=== PATIENT | male | born 1975 | race African-American/Black ===

== ENCOUNTER → 2016-04-01 | Day surgery (SDC) | payer OTHER ==
[~2016-04-01] MED LIST: ACETAMINOPHEN/HYDROcodone 325 MG/5 MG TAB ONE; BUPIVACAINE HCL PF 0.5% 10 ML VIAL ONE; KETOROLAC TROMETHAMINE 30 MG/ML (IVP) VIAL IV PUSH ONE; LACTATED RINGER'S 1000 ML INJ 1,000 ML ONE; MIDAZOLAM HCL 2 MG/2 ML VIAL ONE; ONDANSETRON HCL 4 MG/2 ML VIAL IV PUSH ONE; OXYC1TAB36 PO; PROPOFOL 100 MG/10 ML INJ IV ONE; ceFAZolin INJ 1,000 MG VIAL ONE
--- NOTE | 2016-04-01 11:36 | PD.OP ---
cc: Baljinder Chaidez Jr., MD Operative Report Date of Surgery: Apr 01, 2016 Preoperative Diagnosis: left dequervains tenosynovitis Postoperative Diagnosis: same Procedure: left wrist 1st dorsal compartment release Anesthesia: LMA Surgeon: Baljinder Chaidez Incinerator Operator(s): staff Resident Surgeon: none Operation and Findings: Patient was seen and evaluated preoperatively and found to have debilitating LEFT wrist dequervains tenosynovitis. More than 6 months of Increasing activity related pain that has become debilitating in the wrist and now is interfering with the ability to perform activities of daily living. During that time, the patient has failed conservative treatment such as activity modification, use of wrist brace, po NSAIDS, physical therapy, multiple steroid injections. I discussed the treatment plan with the patient who expressed verbal understanding and agrees with my recommendations. Informed consent was obtained after detailed discussion of risk and benefits including bleeding, infection, injury to arteries, nerves, and blood vessels, weakness and numbness of hand, and tendon rupture. Informed consent was obtained. Patient received IV antibiotics prior to incision. Timeout procedure was performed. LEFT upper extremity was prepped with alcohol followed by Hibiclens and draped usual sterile fashion. Patient position supine with an arm table. The radial styloid was palpated and marked. A small incision was made overlying the 1st DC. Dissection was taken down the level of the retinaculum and the 1st DC, containing APL/EPB was opened and released. There was significant synovitis of the tendons. The tendons were elevated and freed from the floor the compartment. There were no further adhesions, subsheaths, additional compartment, septum or osteophytes present. The wound was irrigated, closed 3-0 nylon at the skin. Sterile dressing was applied and the patient was placed in a well-padded radial gutter splint. There were no complications. Patient extubated and transferred to PACU in stable condition. POSTP-OP PLAN OF ACTIVITY Antibiotics: none postop Antiocoagulation: none Weight bearing status: NWB soft dressing, which will be removed in the office within 2 weeks. Dressing: Do not remove dressing Dispo: expected discharge same day Baljinder Chaidez Jr., MD Apr 01, 2016 11:36
== END | disposition home or self-care (01) ==
LOC: ESDC 09:11
PROVIDERS: ATTEND Orthopaedic Surgery
DX: M65.4 Radial styloid tenosynovitis [de Quervain] (principal)
CPT/HCPCS: 01810; 25000; J0690; J1885; J2250; J2405; J3010; J7120

== ENCOUNTER 2016-08-30 19:17 | Emergency (ER) | payer SELFPAY ==
[~2016-08-30] VITALS: Ht 167.6 cm; Wt 78.0 kg
[~2016-08-30 19:17] MED LIST changes: -ACETAMINOPHEN/HYDROcodone 325 MG/5 MG TAB ONE; -BUPIVACAINE HCL PF 0.5% 10 ML VIAL ONE; -KETOROLAC TROMETHAMINE 30 MG/ML (IVP) VIAL IV PUSH ONE; -LACTATED RINGER'S 1000 ML INJ 1,000 ML ONE; -MIDAZOLAM HCL 2 MG/2 ML VIAL ONE; -ONDANSETRON HCL 4 MG/2 ML VIAL IV PUSH ONE; -PROPOFOL 100 MG/10 ML INJ IV ONE; -ceFAZolin INJ 1,000 MG VIAL ONE
[2016-08-30 19:21] VITALS: BP 143/95; PULSE 67; RESP 16; TEMP 97.5; O2SAT 99
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
[2016-08-30 20:23] LABS: BASOPHIL % 0.5 % (0.0-2.0); EOSINOPHIL # 0.1 TH/MM3 (0-0.4); EOSINOPHIL % 0.8 % (0.0-4.0); HEMATOCRIT 41.4 % (39.0-51.0); HEMO FLAGS DIFF FINAL; LYMPH % 30.7 % (9.0-44.0); LYMPHOCYTE # 2.6 TH/MM3 (1.0-4.8); MEAN CELL VOLUME 85.6 FL (80.0-100.0); MEAN CORPUSCULAR HEMOGLOBIN 28.1 PG (27.0-34.0); MEAN CORPUSCULAR HGB CONC 32.8 % (32.0-36.0); MONO % 8.5 % (0.0-8.0); NEUT % 59.5 % (16.0-70.0); PLATELET COUNT 163 TH/MM3 (150-450); RED BLOOD COUNT 4.84 MIL/MM3 (4.50-5.90); RED CELL DISTRIBUTION WIDTH 13.2 % (11.6-17.2); WHITE BLOOD COUNT 8.5 TH/MM3 (4.0-11.0)
[2016-08-30 20:39] LABS: ANION GAP 9 MEQ/L (5-15); BICARBONATE 27.7 MEQ/L (21.0-32.0); BLOOD UREA NITROGEN 14 MG/DL (7-18); CHLORIDE 105 MEQ/L (98-107); GLOMERULAR FILTRATION RATE 78 ML/MIN (>89); POTASSIUM 3.6 MEQ/L (3.5-5.1); SODIUM (NA) 142 MEQ/L (136-145)
[2016-08-30 21:10] LABS: AMPHETAMINE, URINE NEG (NEG); BARBITURATES, URINE NEG (NEG); COCAINE, URINE NEG (NEG)
== END 2016-08-30 22:02 | disposition home or self-care (01) ==
LOC: NEPE 19:17
DX: F12.10 Cannabis abuse, uncomplicated (principal)
CPT/HCPCS: 80048; 80307; 85025; 99283

== ENCOUNTER 2017-06-14 08:56 | Emergency (ER) | payer SELFPAY ==
[~2017-06-14] VITALS: Ht 172.7 cm; Wt 86.0 kg
[2017-06-14 09:03] VITALS: BP 110/78; PULSE 68; RESP 17; TEMP 98.1; O2SAT 99
--- NOTE | 2017-06-14 09:21 | PD ---
HPI Chief Complaint: Abdominal Pain Time Seen by Provider: 09:09 Travel History International Travel<30 days: No Contact w/Intl Traveler<30days: No Traveled to known affect area: No History of Present Illness HPI 42yo M with no significant PMH presents to the ED with c/o painful lump in his abdominal since yesterday morning. Pain is right above umbilicus. Denies any fever, chest pain, sob, n/v, dysuria, hematuria, testicular pain, penile discharge or rash. Pt was doing some heavy lifting the day before. PFSH Past Medical History Medical History: Denies Significant Hx Cancer: No Cardiovascular Problems: No Diabetes: No Diminished Hearing: No Endocrine: No Genitourinary: No Hepatitis: No Hiatal Hernia: No Immune Disorder: No Musculoskeletal: Yes Neurologic: No Psychiatric: No Reproductive: No Respiratory: Yes (PNEUMONIA TIMES 2 HX OF COLLAPSED LUNG) Immunizations Current: Yes (TETANUS SHOT 3 YEARS AGO) Thyroid Disease: No Past Surgical History Abdominal Surgery: No AICD: No Body Medical Devices: HARDWARE IN LEFT ANKLE Cardiac Surgery: No Ear Surgery: No Endocrine Surgery: No Eye Surgery: No Genitourinary Surgery: No Gynecologic Surgery: No Joint Replacement: No Neurologic Surgery: No Oral Surgery: No Pacemaker: No Thoracic Surgery: Yes (CHEST TUBE) Other Surgery: Yes (LEFT WRIST) Social History Alcohol Use: Yes (DAILY) Tobacco Use: No Substance Use: No Allergies-Medications (Allergen,Severity, Reaction): Coded Allergies: No Known Allergies (Unverified Allergy, Unknown, 06/14/17) Reported Meds & Prescriptions Reported Meds & Active Scripts Active No Active Prescriptions or Reported Medications Review of Systems Except as stated in HPI: all other systems reviewed are Neg Physical Exam Narrative GENERAL: 42yoM in mild distress. SKIN: Focused skin assessment warm/dry. HEAD: Atraumatic. Normocephalic. CARDIOVASCULAR: Regular rate and rhythm. No murmur appreciated. RESPIRATORY: No accessory muscle use. Clear to auscultation. Breath sounds equal bilaterally. GASTROINTESTINAL: Abdomen soft, +1cm nodule above mid umbilicus that is tender to palpation. No rebound tenderness or guarding. MUSCULOSKELETAL: No obvious deformities. No clubbing. No cyanosis. No edema. NEUROLOGICAL: Awake and alert. No obvious cranial nerve deficits. Motor grossly within normal limits. Normal speech. PSYCHIATRIC: Appropriate mood and affect; insight and judgment normal. Data Data Last Documented VS Vital Signs Date Time Temp Pulse Resp B/P (MAP) Pulse Ox O2 Delivery O2 Flow Rate FiO2 06/14/17 09:03 98.1 68 17 110/78 (89) 99 Orders Orders Complete Blood Count With Diff (06/14/17 09:17) Comprehensive Metabolic Panel (06/14/17 09:17) Lipase (06/14/17 09:17) Ct Abd/Pel W Iv Contrast(Rout) (06/14/17 09:17) Ketorolac Inj (Toradol Inj) (06/14/17 09:30) Urinalysis - C+S If Indicated (06/14/17 09:22) Iohexol 350 Inj (Omnipaque 350 Inj) (06/14/17 09:47) Labs Laboratory Tests Test 06/14/17 09:20 06/14/17 09:48 White Blood Count 6.8 TH/MM3 Red Blood Count 5.05 MIL/MM3 Hemoglobin 14.7 GM/DL Hematocrit 43.6 % Mean Corpuscular Volume 86.3 FL Mean Corpuscular Hemoglobin 29.0 PG Mean Corpuscular Hemoglobin Concent 33.6 % Red Cell Distribution Width 14.2 % Platelet Count 164 TH/MM3 Mean Platelet Volume 8.8 FL Neutrophils (%) (Auto) 57.0 % Lymphocytes (%) (Auto) 31.7 % Monocytes (%) (Auto) 7.9 % Eosinophils (%) (Auto) 2.9 % Basophils (%) (Auto) 0.5 % Neutrophils # (Auto) 3.9 TH/MM3 Lymphocytes # (Auto) 2.2 TH/MM3 Monocytes # (Auto) 0.5 TH/MM3 Eosinophils # (Auto) 0.2 TH/MM3 Basophils # (Auto) 0.0 TH/MM3 CBC Comment DIFF FINAL Differential Comment Blood Urea Nitrogen 22 MG/DL Creatinine 1.22 MG/DL Random Glucose 99 MG/DL Total Protein 7.6 GM/DL Albumin 3.9 GM/DL Calcium Level 9.1 MG/DL Alkaline Phosphatase 67 U/L Aspartate Amino Transf (AST/SGOT) 39 U/L Alanine Aminotransferase (ALT/SGPT) 37 U/L Total Bilirubin 1.0 MG/DL Sodium Level 138 MEQ/L Potassium Level 4.4 MEQ/L Chloride Level 106 MEQ/L Carbon Dioxide Level 23.6 MEQ/L Anion Gap 8 MEQ/L Estimat Glomerular Filtration Rate 79 ML/MIN Lipase 205 U/L Urine Color LIGHT-YELLOW Urine Turbidity CLEAR Urine pH 5.5 Urine Specific [place] 1.043 Urine Protein NEG mg/dL Urine Glucose (UA) NEG mg/dL Urine Ketones NEG mg/dL Urine Occult Blood NEG Urine Nitrite NEG Urine Bilirubin NEG Urine Urobilinogen LESS THAN 2.0 MG/DL Urine Leukocyte Esterase NEG Urine RBC LESS THAN 1 /hpf Urine WBC 1 /hpf Microscopic Urinalysis Comment CULT NOT INDICATED MDM Medical Decision Making Medical Screen Exam Complete: Yes Emergency Medical Condition: Yes Differential Diagnosis Lymphadenitis vs. umbilical hernia Narrative Course 42yo M here with c/o small lump above umbilicus that is tender. Pt has been doing heavy lifting. Denies any fever, nausea or vomiting. Labs reviewed, no leukocytosis. H/H normal. CMP unremarkable. Lipase normal. UA negative. CT a/p showed unremarkable bowel gas pattern. Small anterior abdominal wall hernia containing mesenteric fat. Pt is well appearing and pain improved with toradol. Return precautions given. Diagnosis Primary Impression: Umbilical hernia Qualified Codes: K42.9 - Umbilical hernia without obstruction or gangrene Referrals: Marvin Lee MD as needed Umbilical hernia Patient Instructions: General Instructions Departure Forms: Tests/Procedures, Work Release Enter return to work date: Jun 16, 2017 Additional Instructions: Please follow up with general surgery as outpatient if pain persists. Please return to the ED if symptoms worsen. Med/Other Pt SpecificInfo: Prescription(s) given Scripts Ibuprofen (Ibuprofen) 600 Mg Tab 600 MG PO Q8HR Y for PAIN for 5 Days, TAB 0 Refills Prov: Loli Ruiz DO 06/14/17 Disposition: 01 DISCHARGE HOME Condition: Stable Loli Ruiz DO Jun 14, 2017 09:21
[2017-06-14] MEDS ORDERED: KETOROLAC TROMETHAMINE 30 MG/ML (IVP) VIAL IV PUSH ONE (09:30)
[2017-06-14 09:36] LABS: AUTOMATED NEUTROPHIL # 3.9 TH/MM3 (1.8-7.7); BASOPHIL % 0.5 % (0.0-2.0); EOSINOPHIL # 0.2 TH/MM3 (0-0.4); EOSINOPHIL % 2.9 % (0.0-4.0); HEMATOCRIT 43.6 % (39.0-51.0); HEMOGLOBIN 14.7 GM/DL (13.0-17.0); LYMPH % 31.7 % (9.0-44.0); LYMPHOCYTE # 2.2 TH/MM3 (1.0-4.8); MEAN CELL VOLUME 86.3 FL (80.0-100.0); MEAN CORPUSCULAR HGB CONC 33.6 % (32.0-36.0); MEAN PLATELET VOLUME 8.8 FL (7.0-11.0); MONO % 7.9 % (0.0-8.0); MONOCYTE # 0.5 TH/MM3 (0-0.9); PLATELET COUNT 164 TH/MM3 (150-450); RED BLOOD COUNT 5.05 MIL/MM3 (4.50-5.90); RED CELL DISTRIBUTION WIDTH 14.2 % (11.6-17.2); WHITE BLOOD COUNT 6.8 TH/MM3 (4.0-11.0)
[2017-06-14] MEDS ORDERED: IOHEXOL 350 MG/ML 10 ML VIAL (for RAD DIAG) IVCONTRAST ONE (09:47)
[2017-06-14 09:52] LABS: ALT (GPT) 37 U/L (12-78)
[2017-06-14 09:55] LABS: ALKALINE PHOSPHATASE 67 U/L (45-117); TOTAL PROTEIN 7.6 GM/DL (6.4-8.2)
[2017-06-14 09:57] LABS: ALBUMIN 3.9 GM/DL (3.4-5.0); AST (GOT) 39 U/L (15-37); BICARBONATE 23.6 MEQ/L (21.0-32.0); BLOOD UREA NITROGEN 22 MG/DL (7-18); CALCIUM 9.1 MG/DL (8.5-10.1); CHLORIDE 106 MEQ/L (98-107); CREATININE 1.22 MG/DL (0.60-1.30); GLOMERULAR FILTRATION RATE 79 ML/MIN (>89); GLUCOSE,RANDOM 99 MG/DL (74-106); SODIUM (NA) 138 MEQ/L (136-145)
--- NOTE | 2017-06-14 09:57 | RADRPT ---
EXAM DATE/TIME: 06/14/2017 09:31 [place] COMPARISON: No previous studies available for comparison. INDICATIONS : Umbilical pain for two days. IV CONTRAST: 96 cc Omnipaque 350 (iohexol) IV ORAL CONTRAST: No oral contrast ingested. RADIATION DOSE: 6.03 CTDIvol (mGy) MEDICAL HISTORY : None SURGICAL HISTORY : None. ENCOUNTER: Initial ACUITY: 2 days PAIN SCALE: 10/10 LOCATION: umbilical abdomen TECHNIQUE: Volumetric scanning of the abdomen and pelvis was performed. Using automated exposure control and ad justment of the mA and/or kV according to patient size, radiation dose was kept as low as reasonably achievable to obtain optimal diagnostic quality images. DICOM format image data is available electro nically for review and comparison. FINDINGS: LOWER LUNGS: The visualized lower lungs are clear. LIVER: Homogeneous density without lesion. There is no dilation of the biliary tree. No calcified gallston es. SPLEEN: Normal size without lesion. PANCREAS: Within normal limits. KIDNEYS: Normal in size and shape. There is no mass, stone or hydronephrosis. ADRENAL GLANDS: Within normal limits. VASCULAR: There is no aortic aneurysm. BOWEL/MESENTERY: No oral contrast was given imaging the sensitivity of the exam. The stomach, small bowel, and colon d emonstrate no acute abnormality. There is no free intraperitoneal air or fluid. ABDOMINAL WALL: There is a small anterior abdominal wall hernia containing mesenteric fat above the umbilicus region. RETROPERITONEUM: There is no lymphadenopathy. BLADDER: No wall thickening or mass. REPRODUCTIVE: Within normal limits. INGUINAL: There is no lymphadenopathy or hernia. MUSCULOSKELETAL: Within normal limits for patient age. CONCLUSION: 1. Unremarkable bowel gas pattern. 2. Unremarkable gallbladder. 3. Small anterior abdominal wall hernia containing mesenteric fat. Walt Guidry MD on June 14, 2017 at 9:50 Board Certified Radiologist. This report was verified electronically.
[2017-06-14 10:08] LABS: BILIRUBIN, URINE NEG (NEG); BLOOD, URINE NEG (NEG); GLUCOSE,URINE NEG (NEG); KETONE, URINE NEG (NEG); NITRITE,URINE NEG (NEG); PH, URINE 5.5 (5.0-8.5); URINE COLOR LIGHT-YELLOW (YELLW/STRAW); URINE LEUKOCYTE ESTERASE NEG (NEG)
[2017-06-14] MEDS ORDERED: IBUP-232 PO (10:52)
[2017-06-14 11:02] VITALS: BP 131/99
== END 2017-06-14 11:08 | disposition home or self-care (01) ==
LOC: NEPE 08:56
DX: K42.9 Umbilical hernia without obstruction or gangrene (principal)
CPT/HCPCS: 74177; 80053; 81001; 83690; 85025; 96374; 99284; J1885; Q9967

== ENCOUNTER → 2017-06-26 | Day surgery (SDC) | payer OTHER ==
[~2017-06-26] MED LIST changes: +ACETAMINOPHEN 1000 MG/100 ML 100 ML IV ONE; +BUPIVACAINE/EPINEPHRINE 0.5% PF 30 ML VIAL ONE; +IBUP-232 PO; +LACTATED RINGER'S 1000 ML INJ 1,000 ML ONE; +LIDOCAINE 1%/EPINEPHrine 1:100,000 SOLN 50 ML VIAL ONE; +MIDAZOLAM HCL 2 MG/2 ML VIAL ONE; +MORPHINE SULFATE 2 MG/ML SYRINGE ONE; +ONDANSETRON HCL 4 MG/2 ML VIAL IV PUSH ONE; -OXYC1TAB36 PO; +PROPOFOL 200 MG/20 ML AMP IV ONE; +ceFAZolin 2 GM PREMIX 50 ML ONE
--- NOTE | 2017-06-26 14:45 | TN ---
cc: Martín Daugherty MD DATE OF SURGERY: 06/26/2017 PREOPERATIVE DIAGNOSIS: Traumatic ventral hernia, symptomatic. POSTOPERATIVE DIAGNOSIS: Traumatic ventral hernia, symptomatic. PROCEDURE: Repair of ventral hernia, about 2 cm above the umbilicus, that was incarcerated with preperitoneal fat. ANESTHESIA: General. SURGEON: MD Willow INDICATIONS: This is a pleasant gentleman who felt a bulge in his abdomen at work. It was found that he had a ventral hernia above the umbilicus. DESCRIPTION OF PROCEDURE: The patient was taken to the operating room, placed on the operating table in supine position. After anesthesia, his abdomen was prepped with Betadine. Timeout was done. Antibiotics were given. I make a vertical incision just above the umbilicus, dissect down to the subcutaneous tissue, identifying incarcerated preperitoneal fat that measures about 2 cm. This is dissected all the away from the surrounding subcutaneous tissue, down to the base. At the hernia defect it measured about 3 mm. This is amputated off. We then repair the defect with an interrupted 0 Ethibond x3 in a horizontal fashion. The area is then inspected. I did note I dissected more inferiorly at the umbilical stalk to see if he had an umbilical hernia which he did not. The deep layers are then closed with 2-0 Vicryl. Skin is closed with 4-0 Vicryl. Steri-Strips applied, sterile bandage was applied. The patient tolerates the procedure well with no immediate postop complications. Martín Daugherty MD JEZEKIEL/KERRY , 02:30 PM , 02:44 PM
== END | disposition home or self-care (01) ==
LOC: ESDC 11:08
PROVIDERS: ATTEND Surgery
DX: K43.6 Other and unspecified ventral hernia with obstruction, without gangrene (principal)
CPT/HCPCS: 00752; 49561; 82948; J0131; J0690; J2250; J2270; J2405; J3010; J7120

== ENCOUNTER 2017-07-21 15:58 | Emergency (ER) | payer SELFPAY ==
[~2017-07-21] VITALS: Ht 172.7 cm; Wt 78.0 kg
[~2017-07-21 15:58] MED LIST changes: -ACETAMINOPHEN 1000 MG/100 ML 100 ML IV ONE; -BUPIVACAINE/EPINEPHRINE 0.5% PF 30 ML VIAL ONE; -LACTATED RINGER'S 1000 ML INJ 1,000 ML ONE; -LIDOCAINE 1%/EPINEPHrine 1:100,000 SOLN 50 ML VIAL ONE; -MIDAZOLAM HCL 2 MG/2 ML VIAL ONE; -MORPHINE SULFATE 2 MG/ML SYRINGE ONE; -ONDANSETRON HCL 4 MG/2 ML VIAL IV PUSH ONE; -PROPOFOL 200 MG/20 ML AMP IV ONE; -ceFAZolin 2 GM PREMIX 50 ML ONE
[2017-07-21 16:08] VITALS: BP 137/72; PULSE 63; RESP 18; TEMP 98.1; O2SAT 99
--- NOTE | 2017-07-21 16:35 | PD ---
HPI Chief Complaint: Oral / Dental Pain or Problem Time Seen by Provider: 16:27 Travel History International Travel<30 days: No Contact w/Intl Traveler<30days: No Traveled to known affect area: No History of Present Illness HPI 42-year-old male presents with 2 day history of dental pain in the left lower jaw and the third molar for the past several days. Patient has had this trouble in the past. He has been taking ibuprofen with somewhat improved pain. He denies fever, chills, or drainage. He has mild swelling of the area. He has sensitivity to hot and cold. Pain is currently 8 out of 10. He has no known drug allergies. PFSH Past Medical History Cancer: No Cardiovascular Problems: No Diabetes: No Diminished Hearing: No Endocrine: No Genitourinary: No Hepatitis: No Hiatal Hernia: No Immune Disorder: No Musculoskeletal: Yes Neurologic: No Psychiatric: No Reproductive: No Respiratory: Yes (PNEUMONIA TIMES 2 HX OF COLLAPSED LUNG) Immunizations Current: Yes (TETANUS SHOT 3 YEARS AGO) Thyroid Disease: No Tetanus Vaccination: Unknown Influenza Vaccination: No Past Surgical History Abdominal Surgery: No AICD: No Body Medical Devices: HARDWARE IN LEFT ANKLE Cardiac Surgery: No Ear Surgery: No Endocrine Surgery: No Eye Surgery: No Genitourinary Surgery: No Gynecologic Surgery: No Joint Replacement: No Neurologic Surgery: No Oral Surgery: No Pacemaker: No Thoracic Surgery: Yes (CHEST TUBE) Other Surgery: Yes (LEFT WRIST) Social History Alcohol Use: Yes (DAILY) Tobacco Use: No Substance Use: No Allergies-Medications (Allergen,Severity, Reaction): Coded Allergies: No Known Allergies (Unverified Allergy, Unknown, 07/21/17) Reported Meds & Prescriptions Reported Meds & Active Scripts Active No Active Prescriptions or Reported Medications Review of Systems Except as stated in HPI: all other systems reviewed are Neg General / Constitutional: No: Fever Eyes: No: Visual changes HENT: Positive: Dental Difficulties, No: Headaches, Vertigo, Lightheadedness, Sore Throat, Rhinitis, Rhinorrhea, Congestion, Nosebleed, Neck Stiffness, Neck Pain, Earache Cardiovascular: No: Chest Pain or Discomfort Respiratory: No: Shortness of Breath Gastrointestinal: No: Abdominal Pain Genitourinary: No: Dysuria Musculoskeletal: No: Pain Skin: No Rash Neurologic: No: Weakness Psychiatric: No: Depression Endocrine: No: Polydipsia Hematologic/Lymphatic: No: Easy Bruising Physical Exam Narrative GENERAL: Patient appears in mild to moderate distress. SKIN: Warm and dry. Normal color. Normal turgor. No rash. HEAD: Atraumatic. Normocephalic. EYES: Pupils equal and round. No scleral icterus. No injection or drainage. ENT: No nasal bleeding or discharge. Mucous membranes pink and moist. Patient has what appears to be caries in the wisdom tooth on the left lower jaw. The gingiva surrounding it is inflamed and erythematous. There is no significant abscess appreciated. NECK: Trachea midline. Supple and nontender without lymphadenopathy. No signs of Addison's angina. CARDIOVASCULAR: Regular rate and rhythm. RESPIRATORY: No accessory muscle use. Clear to auscultation. Breath sounds equal bilaterally. MUSCULOSKELETAL: Extremities without clubbing, cyanosis, or edema. No obvious deformities. NEUROLOGICAL: Awake and alert. No obvious cranial nerve deficits. Motor grossly within normal limits. Five out of 5 muscle strength in the arms and legs. Normal speech. PSYCHIATRIC: Appropriate mood and affect; insight and judgment normal. Data Data Last Documented VS Vital Signs Date Time Temp Pulse Resp B/P (MAP) Pulse Ox O2 Delivery O2 Flow Rate FiO2 07/21/17 16:08 98.1 63 18 137/72 (93) 99 MDM Medical Decision Making Medical Screen Exam Complete: Yes Emergency Medical Condition: Yes Differential Diagnosis Dental caries. Dental pain. Dental abscess. Narrative Course Patient is medically stable at time of exam. Patient is given his first dose of Pen-Vee K 1000 mg p.o. Patient continued on Pen-Vee K 500 4 times daily for 10 days. Patient also given prescription for ibuprofen 800 mg 3 times daily with food # 30. Patient is given Magic mouthwash to be used as directed for dental pain. 120 mL 's with 1 refill. Recommend follow-up with either oral surgeon or dentist as discussed. Patient can return if symptoms worsen as needed. Diagnosis Primary Impression: Dental abscess Referrals: Dentist Oral Maxillofacial Surgeon Patient Instructions: Dental Abscess (ED), General Instructions Additional Instructions: Patient is given his first dose of Pen-Vee K 1000 mg p.o. Patient continued on Pen-Vee K 500 4 times daily for 10 days. Patient also given prescription for ibuprofen 800 mg 3 times daily with food # 30. Patient is given Magic mouthwash to be used as directed for dental pain. 120 mL 's with 1 refill. Recommend follow-up with either oral surgeon or dentist as discussed. Patient can return if symptoms worsen as needed. Med/Other Pt SpecificInfo: Prescription(s) given Scripts No Active Prescriptions or Reported Meds Disposition: 01 DISCHARGE HOME Condition: Stable Edin Alves July 21, 2017 16:35
[2017-07-21] MEDS ORDERED: IBUP1TAB7 PO (16:38)
[2017-07-21] MEDS ORDERED: PENI500T PO (16:38)
[2017-07-21] MEDS ORDERED: MAGICADU2 SWISH-SWAL (16:38)
[2017-07-21] MEDS ORDERED: PENICILLIN V POTASSIUM 500 MG TAB PO ONE (16:45)
== END 2017-07-21 17:04 | disposition home or self-care (01) ==
LOC: NEPK 15:58
DX: K04.7 Periapical abscess without sinus (principal)
CPT/HCPCS: 99283